=== PATIENT | male | born 1965 | race Two or more races ===

== ENCOUNTER 2022-11-15 22:28 | Emergency (ER) | payer OTHER ==
[~2022-11-15] VITALS: Ht 162.6 cm; Wt 61.2 kg
[2022-11-16] MEDS ORDERED: CEPHALEXIN500 MG PO (05:46)
== END 2022-11-16 05:55 ==
LOC: ER 22:28
DX: S09.90XA Unspecified injury of head, initial encounter (principal); W22.8XXA Striking against or struck by other objects, initial encounter; Y93.01 Activity, walking, marching and hiking; Y92.9 Unspecified place or not applicable